=== PATIENT | female | born 1940 | race Caucasian/White ===

== ENCOUNTER → 2022-04-09 08:44 | Outpatient (CLI) | payer MEDICARE, BC, SELFPAY ==
[2022-04-09 09:39] LABS: Basophils % 0.6 % (0.1-2.0); Eosinophils # 0.1 K/mm3 (0.0-0.4); Hematocrit 44.7 % (37.0-47.0); Hemoglobin 13.6 g/dL (12.2-16.2); Lymphocytes % 33.6 % (10-50); Mean Corpuscular HGB Conc 30.5 g/dL (31.8-35.4); Mean Corpuscular Hemoglobin 29.3 pg (27.0-31.2); Mean Platelet Volume 9.4 fl (7.4-10.4); Monocytes # 0.4 K/mm3 (0.1-1.0); Neutrophils # 3.4 K/mm3 (1.8-7.8); Neutrophils % 57.8 % (37.0-80.0); Platelet Count 211 K/mm3 (142-424); Red Blood Count 4.66 M/mm3 (4.20-5.40); Red Cell Distribution Width 13.8 % (11.5-17.5); White Blood Count 5.8 K/mm3 (4.8-10.8)
[2022-04-09 09:58] LABS: Anion Gap 13.2 mEq/L (5-15); Blood Urea Nitrogen 13 mg/dl (7-17); Calcium 9.6 mg/dl (8.4-10.2); Carbon Dioxide 27 mmol/L (22.0-30.0); Chloride 105 mmol/L (98-107); Estimated Glomerular Filt Rate 69 ml/min (>60); GFR (African American) 83 ML/MIN (>60); Glucose 101 mg/dl (74-100); Potassium 4.2 mmoL/L (3.5-5.1); Sodium 141 mmol/L (136-145)
== END ==
PROVIDERS: PCP Family Medicine; Visit Provider Nurse Practitioner
DX: Z45.010 Encounter for checking and testing of cardiac pacemaker pulse generator [battery] (principal); Z01.810 Encounter for preprocedural cardiovascular examination; Z20.822 Contact with and (suspected) exposure to COVID-19
CPT/HCPCS: 36415; 80048; 85025; C9803; U0003; U0005

== ENCOUNTER 2022-04-10 09:24 | Day surgery (SDC) | payer MEDICARE, BC, SELFPAY ==
[2022-04-10] VITALS (7 sets, daily range): BP systolic 117–190; BP diastolic 59–105; PULSE 77–88; RESP 18; TEMP 36.4; O2SAT 93–97; BMI 26.6
--- NOTE | 2022-04-10 | IR_ITS ---
APPROVED REPORT Patient Location: Outpatient PROCEDURES 1. Pocket Revision 2. Removal of old Pacemaker 3. Implant of Permanent Pacemaker INDICATION End of battery life Informed consent was obtained prior to the procedure. COMPLICATIONS None Estimated Blood Loss: Less than 10 ML TECHNIQUE 1% lidocaine with epinephrine used to anesthetize the left anterior aspect of the chest. Scalpel was used to make the initial cutaneous incision and then used to dissect down to the existing pacemaker generator. The generator was removed from the existing pocket. Digital manipulation was required along with intermittent usage of scalpel in order to revise the pocket. The leads were removed from the old generator. The new generator was screwed to the existing leads and secured into place. Electronic interrogation proved acceptable thresholds and voltage within the lead. Antibiotics were used to flush the pocket and the pacemaker was secured using 3-0 silk into the newly revised pocket. Monocryl was used to close the subcutaneous tissue and then alex were placed on the cutaneous area in order to approximate the incision. Patient was transferred to the postop holding area in stable condition. INTERROGATION Generator Model number: QuicklyChat MRI DR L311 Generator Serial number: [id number] Atrial lead model number: 1882 TL/46 Atrial lead serial number: [id number] P-wave: 1.0 mV Impedence: 369 Ohms Threshold: 0.7V @ 0.4 ms Right Ventricular lead model number: 2088 TL/52 Right Ventricular lead serial number: [id number] R-wave: 10.0 mV Impedence: 333 Ohms Threshold: 1.6V @ 0.4 ms Explanted: [employer] Model 2210 Serial Number: [id number] Pacing Parameters: Mode: DDDR Base/Max Track:60 ppm / 130 ppm No diaphragmatic stimulation at 10 volts. IMPRESSION 1. Successful Pocket Revision 2. Successful Removal of old Pacemaker 3. Successful Implant of Permanent Pacemaker PLAN 1. Post Op Wound Care Electronically signed by : Herberth Barrera MD 04/11/2022 14:07:39
== END 2022-04-10 14:24 | disposition home or self-care (01) ==
LOC: CATHLAB 09:30
PROVIDERS: PCP Family Medicine; Visit Provider Internal Medicine
DX: Z45.010 Encounter for checking and testing of cardiac pacemaker pulse generator [battery] (principal); I10 Essential (primary) hypertension; Z95.5 Presence of coronary angioplasty implant and graft
CPT/HCPCS: 33228; 99152; C1785

== ENCOUNTER → 2022-07-10 14:59 | Outpatient (CLI) | payer MEDICARE, BC, SELFPAY ==
[2022-07-10 18:04] LABS: Folate > 20.00 ng/mL
[2022-07-12 11:20] LABS: Rapid Plasma Reagin Ab Titer Non Reactive (NonRea<1:1)
[2022-08-02 12:38] LABS: Antinuclear Antibodies (ANA) N
== END ==
PROVIDERS: PCP Family Medicine; Visit Provider Nurse Practitioner Family
DX: G93.40 Encephalopathy, unspecified (principal); R26.89 Other abnormalities of gait and mobility; R53.83 Other fatigue; Z86.79 Personal history of other diseases of the circulatory system; Z95.0 Presence of cardiac pacemaker
CPT/HCPCS: 36415; 82746; 86038; 86225; 86235; 86592

== ENCOUNTER → 2022-08-08 12:04 | Outpatient (CLI) | payer MEDICARE, BC, SELFPAY ==
--- NOTE | 2022-08-08 12:05 | CT_ITS ---
FINAL REPORT CLINICAL HISTORY: encephalopathy, memory loss FINDINGS: Axial images of the head were obtained without contrast. Coronal reformatted images were also obtained. This study was performed with techniques to keep radiation doses as low as reasonably achievable (ALARA). Individualized dose reduction techniques using automated exposure control or adjustment of mA and/or kV according to the patient's size were employed. There is generalized age-appropriate atrophy. Periventricular low-attenuation areas are seen consistent with moderate to severe chronic ischemic changes. There is no evidence of intracranial hemorrhage or mass. There is no evidence of acute infarct. There is no evidence of shift of the midline structures. No skull abnormality is seen on the bone window images. IMPRESSION: Atrophy and moderate to severe periventricular chronic ischemic changes. No acute intracranial abnormality identified. Reviewed, Interpreted and Dictated by Ab Calzada III, MD Transcribed by Carmelita Alarcon Authenticated and [facility]
== END ==
PROVIDERS: PCP Family Medicine; Visit Provider Nurse Practitioner Family
DX: G93.40 Encephalopathy, unspecified (principal); R26.89 Other abnormalities of gait and mobility; R53.83 Other fatigue; Z86.79 Personal history of other diseases of the circulatory system; Z95.0 Presence of cardiac pacemaker
CPT/HCPCS: 70450

== ENCOUNTER → 2022-08-09 10:07 | Outpatient (CLI) | payer MEDICARE, BC, SELFPAY | PROVIDERS: PCP Family Medicine; Visit Provider Nurse Practitioner Family | DX: G93.40 Encephalopathy, unspecified (principal); R26.89 Other abnormalities of gait and mobility; R53.83 Other fatigue; Z86.79 Personal history of other diseases of the circulatory system; Z95.0 Presence of cardiac pacemaker; G47.33 Obstructive sleep apnea (adult) (pediatric) ==

== ENCOUNTER → 2022-08-15 10:39 | Outpatient (CLI) | payer MEDICARE, BC, SELFPAY ==
--- NOTE | 2022-08-15 12:04 | XR_ITS ---
FINAL REPORT CLINICAL HISTORY: HIP PAIN x 1 week FINDINGS: LEFT HIP Two views of the left hip with an AP pelvis demonstrate no acute fracture or dislocation. The joint spaces appear normal. The visualized bony structures are well aligned. No soft tissue abnormality is seen. IMPRESSION: No acute bony abnormality. Reviewed, Interpreted and Dictated by Mina Chavarria MD Transcribed by Liane Powers Authenticated and [facility]
== END ==
PROVIDERS: PCP Family Medicine; Visit Provider Nurse Practitioner Family
DX: M25.552 Pain in left hip (principal); R10.2 Pelvic and perineal pain; G47.33 Obstructive sleep apnea (adult) (pediatric); R53.83 Other fatigue
CPT/HCPCS: 73502; G0399